=== PATIENT | female | born 1945 | race African-American/Black ===

== ENCOUNTER 2017-12-19 13:10 | Emergency (ER) | payer OTHER ==
[~2017-12-19] VITALS: Ht 162.6 cm; Wt 92.0 kg
[2017-12-19 13:15] VITALS: BP 171/79
[2017-12-19] MEDS ORDERED: ACETAMINOPHEN 500MG TABLET PO ONE (15:45)
== END 2017-12-19 16:34 | disposition home or self-care (01) ==
LOC: ER 13:43
DX: M54.9 Dorsalgia, unspecified (principal); I10 Essential (primary) hypertension; Z88.6 Allergy status to analgesic agent; V43.52XA Car driver injured in collision with other type car in traffic accident, initial encounter; Y93.89 Activity, other specified; Y92.89 Other specified places as the place of occurrence of the external cause; Y99.8 Other external cause status
CPT/HCPCS: 99283